=== PATIENT | male | born 1990 | race American Indian/Alaskan Native ===

== ENCOUNTER 2017-02-18 09:32 | Emergency (ER) | payer SELFPAY ==
[2017-02-18 10:10] VITALS: BP 100/60
--- NOTE | 2017-02-18 11:46 | XRay Report ---
Left hand 2 views: History: Pain and edema. Findings: Fracture is noted at the head of the fourth metacarpal left hand. No dislocation. Normal articular margin. Impression: Fracture fourth metacarpal left hand.
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
== END 2017-02-18 13:10 | disposition home or self-care (01) ==
LOC: ED 09:32
DX: S62.395A Other fracture of fourth metacarpal bone, left hand, initial encounter for closed fracture (principal); X58.XXXA Exposure to other specified factors, initial encounter; Y93.89 Activity, other specified; Y99.8 Other external cause status; Y92.098 Other place in other non-institutional residence as the place of occurrence of the external cause